=== PATIENT | female | born 2000 ===

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

== ENCOUNTER 2024-11-01 14:34 | Outpatient (CLI) | payer OTHER ==
[~2024-11-01 14:34] MED LIST: AMOX1TAB5 PO
== END 2024-11-01 14:42 | disposition home or self-care (01) ==
LOC: PRENATAL 14:34
PROVIDERS: ATTEND Obstetrics & Gynecology Maternal & Fetal Medicine
DX: O36.80X0 Pregnancy with inconclusive fetal viability, not applicable or unspecified (principal); Z36.82 Encounter for antenatal screening for nuchal translucency; Z14.8 Genetic carrier of other disease; Z3A.13 13 weeks gestation of pregnancy

== ENCOUNTER 2024-12-17 11:17 | Outpatient (CLI) | payer OTHER | END 2024-12-17 11:21 | disposition home or self-care (01) | LOC: PRENATAL 11:17 | PROVIDERS: ATTEND Obstetrics & Gynecology Maternal & Fetal Medicine | DX: O44.00 Complete placenta previa NOS or without hemorrhage, unspecified trimester (principal); Z3A.20 20 weeks gestation of pregnancy ==

== ENCOUNTER 2025-03-19 10:25 | Outpatient (CLI) | payer OTHER | END 2025-03-19 10:26 | disposition home or self-care (01) | LOC: PRENATAL 10:25 | PROVIDERS: ATTEND Obstetrics & Gynecology Maternal & Fetal Medicine | DX: O26.849 Uterine size-date discrepancy, unspecified trimester (principal); O36.8199 Decreased fetal movements, unspecified trimester, other fetus; Z3A.33 33 weeks gestation of pregnancy ==